=== PATIENT | female | born 1980 | race African-American/Black ===

== ENCOUNTER 2021-04-20 19:57 | Emergency (ER) | payer BC, SELFPAY ==
[2021-04-20 20:10] VITALS: BP 145/92; PULSE 91; RESP 18; TEMP 36.9; O2SAT 98
--- NOTE | 2021-04-20 20:19 | ED.GENADULT ---
HPI - General Adult General Chief complaint: Wound/Laceration Stated complaint: mouth injury Source: patient Mode of arrival: ambulatory Limitations: no limitations History of Present Illness HPI narrative: Pleasant 41 y/o female. PMH includes: Seasonal allergies. Presents to [facility] today with acute complaints of RT upper lip laceration, occurred 20 minutes [employer]. 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 No closed head injury, neck pain, falls, or LOC. No dental pain. No oral or jaw pain or bony trauma. Bleeding is controlled. Last tetanus is reported as UTD in past 2 years. No additional injury has been relayed. Related Data Home Medications Medication Instructions Recorded Confirmed fluticasone propionate [Flonase] 1 spray INTRANASAL BID 04/20/21 04/20/21 Allergies Allergy/AdvReac Type Severity Reaction Status Date / Time No Known Allergies Allergy Verified 04/20/21 19:59 Review of Systems Review of Systems: Narrative: CONSTITUTIONAL: Denies fever, chills, sweats. EYES: Denies visual changes, redness, discharge. ENT: Laceration RT upper lip. No bony pain. Denies rhinorrhea, congestion, sore throat, otalgia. CARDIOVASCULAR: Denies chest pain, palpitations, edema. RESPIRATORY: Denies dyspnea, wheezing, cough GASTROINTESTINAL: Denies abdominal pain, nausea, vomiting, diarrhea. GENITOURINARY: Denies dysuria, hematuria, abnormal discharge SKIN: negative. MUSCULOSKELETAL: Denies acute back pain, joint pain, or myalgia. NEUROLOGIC: Denies numbness, or focal weakness. PSYCHIATRIC: Denies anxiety or depression. All systems reviewed & are unremarkable except as noted in HPI and below PMFSH Social History Social History Gender identity (if verbalized by the patient): Female Exam Narrative: Exam Narrative: GENERAL: This is a well-nourished, well-developed patient, in no apparent distress. HEAD: normocephalic, atraumatic. EYES: MARY, sclera clear/white. Vision is grossly intact. EARS: External ears normal. NOSE: External nose normal with no obvious nasal discharge, nares without redness, no rhinorrhea. MOUTH: With 1 cm laceration to RT upper and outer lip. Linear. Bleeding is controlled. No FB. Area does not disrupt [place]. No intra-oral trauma. No bony tenderness. Full to facial joints. THROAT: Mucous membranes moist, posterior pharynx clear. NECK: Neck supple, non-tender without lymphadenopathy, masses or thyromegaly. CARDIOVASCULAR: Regular rate and rhythm without murmurs, gallops, or rubs. RESPIRATORY: Clear to auscultation. Breath sounds equal bilaterally. GASTROINTESTINAL: Abdomen soft, non-tender, nondistended. SKIN: Lip laceration-Refer to Mouth above. NEURO: awake, alert, and oriented to person, place and time. There were no obvious focal neurologic abnormalities. gait steady. Course Vital Signs Vital signs: Vital Signs Temperature 36.9 C 04/20/21 20:10 Pulse Rate 91 04/20/21 20:10 Respiratory Rate 18 04/20/21 20:10 Blood Pressure 145/92 H 04/20/21 20:10 Pulse Oximetry 98 04/20/21 20:10 Temperature 36.9 C 04/20/21 20:10 Pulse Rate 91 04/20/21 20:10 Respiratory Rate 18 04/20/21 20:10 Blood Pressure 145/92 H 04/20/21 20:10 Pulse Oximetry 98 04/20/21 20:10 Procedures Laceration Laceration 1: Date: 04/20/21 Time: 20:44 Site: lip (RT upper) Side (If applicable): right Size (cm): 1 Description: linear Depth: simple, single layer Local Anesthetic: lidocaine 1% Amount of anesthesia used (mL): 0.5 Pre-repair: wound explored and irrigated ====== Skin Level ====== Skin layer closed with: vicryl Size (cm): 3-0 Number of sutures: 3 Technique: simple, interrupted ====== Subcutaneous Layer ======
== END 2021-04-20 20:49 | disposition home or self-care (01) ==
PROVIDERS: Emergency Provider Nurse Practitioner Adult Health
DX: S01.511A Laceration without foreign body of lip, initial encounter (principal); W21.07XA Struck by softball, initial encounter
CPT/HCPCS: 12011; 99202; G0463